=== PATIENT | female | born 1930 | race Caucasian/White ===

== ENCOUNTER 2016-12-07 23:06 | Inpatient (IN) | payer MEDICARE, OTHER ==
[~2016-12-07] VITALS: Ht 157.5 cm; Wt 53.0 kg
[2016-12-07 23:15] VITALS: BP 130/59; PULSE 73; RESP 17; TEMP 97.8; O2SAT 97
[2016-12-07] MEDS ORDERED: LEVO50TA4 PO (23:31)
[2016-12-07] MEDS ORDERED: SULF1TAB23 PO (23:31)
--- NOTE | 2016-12-07 23:48 | PD ---
HPI Chief Complaint: Hip Injury Time Seen by Provider: 23:48 Travel History International Travel<30 days: No Contact w/Intl Traveler<30days: No Traveled to known affect area: No History of Present Illness HPI The patient is an 86 year old female who presents to the [facility] emergency department with a history of right hip pain that began after losing her balance when getting out of a chair. She fell and landed on her right hip. She denies hitting her head or LOC. She feels nauseated, but she denies vomiting. She last ate a meal last at 6 pm. The patient denies ever having any surgery on the right hip. She was unable to ambulate after the fall. She denies any recent fevers, cough, congestion, neck pain, chest pain, shortness of breath, abdominal pain, vomiting, diarrhea, urinary symptoms, or neurologic symptoms. [facility] Past Medical History Narrative Medical The patient's past medical history is significant for hypothyroid disorder, MRSA infection in the back. Thyroid Disease: Yes Tetanus Vaccination: Unknown Influenza Vaccination: No ?: Not Past Surgical History Narrative Surgical The patient's past surgical history is significant for Neck fusion, back fusion , history of replacement of hardware in her back related to a MRSA infection now on suppressive antibiotic daily, history of hysterectomy, cholecystectomy, appendectomy. Other Surgery: Yes (back/neck) Social History Alcohol Use: No Tobacco Use: No Substance Use: No Allergies-Medications (Allergen,Severity, Reaction): Coded Allergies: Penicillins (Verified Allergy, Severe, 12/07/16) Sulfa (Sulfonamide Antibiotics) (Verified Allergy, Severe, 12/07/16) alendronate sodium (Verified Allergy, Severe, 12/07/16) celecoxib (Verified Allergy, Severe, 12/07/16) ciprofloxacin (Verified Allergy, Severe, 12/07/16) clindamycin (Verified Allergy, Severe, 12/07/16) codeine (Verified Allergy, Severe, 12/07/16) diphenhydramine (Verified Allergy, Severe, 12/07/16) egg (Verified Allergy, Severe, 12/07/16) influenza virus vaccine, specific (Verified Allergy, Severe, 12/07/16) lansoprazole (Verified Allergy, Severe, 12/07/16) misoprostol (Verified Allergy, Severe, 12/07/16) morphine (Verified Allergy, Severe, 12/07/16) pneumococcal vaccine (Verified Allergy, Severe, 12/07/16) propoxyphene (Verified Allergy, Severe, 12/07/16) ranitidine (Verified Allergy, Severe, 12/07/16) tetracycline (Verified Allergy, Severe, 12/07/16) Reported Meds & Prescriptions Reported Meds & Active Scripts Active Reported Levothyroxine (Levothyroxine Sodium) 50 Mcg Tab 50 Mcg PO DAILY Sulfamethoxazole-Trimethoprim 800-160 Mg Tab 1 Tab PO BID Review of Systems Except as stated in HPI: all other systems reviewed are Neg General / Constitutional: No: Fever Eyes: No: Visual changes HENT: No: Headaches Cardiovascular: No: Chest Pain or Discomfort Respiratory: No: Shortness of Breath Gastrointestinal: No: Nausea, Vomiting, Diarrhea, Abdominal Pain Genitourinary: No: Dysuria Musculoskeletal: Positive: Arthralgias, Limited ROM, Pain Skin: No Rash Neurologic: No: Weakness, Focal Abnormalities, Coordination Problem, Headache, Change in Mentation, Slurred Speech, Sensory Disturbance Psychiatric: No: Depression Endocrine: No: Polydipsia Hematologic/Lymphatic: No: Easy Bruising Physical Exam Narrative General: The patient is a well-developed well-nourished female in no acute distress. Head and Neck exam: Head is normocephalic atraumatic. Eyes: EOMI, pupils are equal round and reactive to light. Nose: Midline septum with pink mucous membranes Mouth: Dentition unremarkable. Moist mucus membranes. Posterior oropharynx is not erythematous. No tonsillar hypertrophy. Uvula midline. Airway patent. Neck: No palpable lymphadenopathy. No nuchal rigidity. No thyromegaly. Cardiovascular: Regular rate and rhythm without murmurs, gallops, or rubs. Lungs: Clear to auscultation bilaterally. No wheezes, rhonchi, or rales. Abdomen: Soft, with reported tenderness in her hip when palpating on the right side of her abdomen both upper and lower quadrant. No guarding, rebound, or rigidity. Normal bowel sounds are audible. No tenderness on palpation of McBurney's point. Extremities: No clubbing, cyanosis, or edema. 2+ pulses in all 4 extremities. No calf tenderness on palpation. The patient has her knee propped up on a pillow. The patient has no evidence of shortening or internal or external rotation. The patient has exquisite pain with any attempts at range of motion of the right hip. Back: No spinous process tenderness to palpation. No costovertebral angle tenderness to palpation. Neurologic Exam: Grossly nonfocal. Skin Exam: No rash noted. Intact skin that is warm and dry. Data Data Last Documented VS Vital Signs Date Time Temp Pulse Resp B/P (MAP) Pulse Ox O2 Delivery O2 Flow Rate FiO2 12/08/16 00:30 73 17 130/66 (87) 93 Room Air 12/07/16 23:15 97.8 Orders Orders Electrocardiogram (12/07/16 23:50) Complete Blood Count With Diff (12/07/16 23:50) Comprehensive Metabolic Panel (12/07/16 23:50) Troponin I (12/07/16 23:50) Prothrombin Time / Inr (Pt) (12/07/16 23:50) Act Partial Throm Time (Ptt) (12/07/16 23:50) Urinalysis - C+S If Indicated (12/07/16 23:50) Magnesium (Mg) (12/07/16 23:50) Chest, Single Ap (12/07/16 23:50) Iv Access Insert/Monitor (12/07/16 23:50) Ecg Monitoring (12/07/16 23:50) Oximetry (12/07/16 23:50) Hip, Uni(Ap&Lat) W Ap Pelvis (12/07/16 23:50) Ice/Cold Pack (12/07/16 23:50) Hydromorphone Pf Inj (Dilaudid Pf Inj) (12/08/16 00:30) Ondansetron Inj (Zofran Inj) (12/08/16 00:30) Sodium Chlor 0.9% 1000 Ml Inj (Ns 1000 M (12/08/16 00:30) Urinary Catheter Insert/Apply (12/08/16 00:22) Admit Order (Ed Use Only) (12/08/16 01:41) Consult Orthopedic (12/08/16 ) Admit To Inpatient (12/08/16 ) Vital Signs (Adult) Q4H (12/08/16 01:41) Activity Bed Rest (12/08/16 01:41) [employer] Clerk / Telemetry .CONTINUOUS (12/08/16 01:41) Diet Npo (12/08/16 Breakfast) Sodium Chloride 0.9% Flush (Ns Flush) (12/08/16 01:45) Sodium Chloride 0.9% Flush (Ns Flush) (12/08/16 09:00) Ondansetron Inj (Zofran Inj) (12/08/16 01:45) Basic Metabolic Panel (Bmp) (12/09/16 06:00) Complete Blood Count With Diff (12/09/16 06:00) Case Management Consult (12/08/16 01:41) Naloxone Inj (Narcan Inj) (12/08/16 01:45) Inpatient Certification (12/08/16 ) Hydromorphone Pf Inj (Dilaudid Pf Inj) (12/08/16 01:45) Labs Laboratory Tests Test 12/08/16 00:00 12/08/16 00:05 White Blood Count 5.4 TH/MM3 Red Blood Count 5.29 MIL/MM3 Hemoglobin 13.9 GM/DL Hematocrit 43.6 % Mean Corpuscular Volume 82.5 FL Mean Corpuscular Hemoglobin 26.4 PG Mean Corpuscular Hemoglobin Concent 31.9 % Red Cell Distribution Width 18.4 % Platelet Count 207 TH/MM3 Mean Platelet Volume 8.3 FL Neutrophils (%) (Auto) 61.5 % Lymphocytes (%) (Auto) 23.2 % Monocytes (%) (Auto) 10.5 % Eosinophils (%) (Auto) 2.8 % Basophils (%) (Auto) 2.0 % Neutrophils # (Auto) 3.3 TH/MM3 Lymphocytes # (Auto) 1.3 TH/MM3 Monocytes # (Auto) 0.6 TH/MM3 Eosinophils # (Auto) 0.1 TH/MM3 Basophils # (Auto) 0.1 TH/MM3 CBC Comment DIFF FINAL Differential Comment Prothrombin Time 10.7 SEC Prothromb Time International Ratio 1.0 RATIO Activated Partial Thromboplast Time 25.4 SEC Blood Urea Nitrogen 22 MG/DL Creatinine 1.26 MG/DL Random Glucose 87 MG/DL Total Protein 7.0 GM/DL Albumin 3.7 GM/DL Calcium Level 9.6 MG/DL Magnesium Level 2.3 MG/DL Alkaline Phosphatase 95 U/L Aspartate Amino Transf (AST/SGOT) 33 U/L Alanine Aminotransferase (ALT/SGPT) 21 U/L Total Bilirubin 0.4 MG/DL Sodium Level 138 MEQ/L Potassium Level 4.5 MEQ/L Chloride Level 105 MEQ/L Carbon Dioxide Level 28.8 MEQ/L Anion Gap 4 MEQ/L Estimat Glomerular Filtration Rate 40 ML/MIN Troponin I LESS THAN 0.02 NG/ML Urine Color LIGHT-YELLOW Urine Turbidity CLEAR Urine pH 6.5 Urine Specific [employer] 1.009 Urine Protein NEG mg/dL Urine Glucose (UA) NEG mg/dL Urine Ketones NEG mg/dL Urine Occult Blood NEG Urine Nitrite NEG Urine Bilirubin NEG Urine Urobilinogen LESS THAN 2.0 MG/DL Urine Leukocyte Esterase SMALL Urine RBC 2 /hpf Urine WBC 4 /hpf Urine Squamous Epithelial Cells <1 /hpf Microscopic Urinalysis Comment CULT NOT INDICATED MDM Medical Decision Making Medical Screen Exam Complete: Yes Emergency Medical Condition: Yes Medical Record Reviewed: Yes Interpretation(s) Last Impressions Hip and Pelvis X-Ray 12/07/162349 Signed Impressions: Service Date/Time: November 00:06 - CONCLUSION: 1. Acute displaced subcapital fracture of the right femoral neck. 2. Remote fractures of the right hemipelvis. Previous spine fixation. Luis Enrique Matos MD Chest X-Ray 12/07/162349 Signed Impressions: Service Date/Time: November 00:16 - CONCLUSION: 1. No active disease. Fixation of the thoracic spine. Luis Enrique Matos MD Differential Diagnosis Right hip fracture, versus dislocation, versus femur fracture, versus pelvis fracture Narrative Course During the course of the patients emergency department visit, the patients history, examination, and differential diagnosis were reviewed with the patient. The patient had [-] IV access obtained and blood work sent for analysis. The patient was on a pvc monitor with oximetry and blood pressure monitoring. An ECG was done on arrival. The patient's ECG reveals a sinus rhythm heart rate of 75, no acute ST segment elevation is noted. QRS duration is 86 ms, QTC 415 ms. And x-ray was done of the right hip and pelvis. The patient was initially provided hydromorphone 0.2 mg IV for pain, Zofran 4 mg IV for nausea. The patient was started on normal saline IV fluids The patients laboratory studies were reviewed and remarkable for a white count of 5.4, hemoglobin 13.9, platelets 207 with 10.5 monos, CMP is remarkable for a BUN of 22, creatinine 1.26, troponin I is less than 0.02, PT PTT within normal limits. Urinalysis shows small leukocyte esterase otherwise unremarkable. Radiology studies were reviewed and remarkable for a chest x-ray that shows no acute cardio pulmonary disease. A right hip x-ray reveals an acute displaced subcapital femoral neck fracture on the right. Remote fractures of the right hemipelvis, previous spine fixation. A call was placed out to the orthopedic physician on-call who did agree to see the patient in consultation. The patients results were discussed with the patient, including the plan of care. I explained that further testing and/ or monitoring is indicated based on the patients history, examination, and/ or laboratory findings. Therefore, I recommended admission for additional evaluation. The patient expressed understanding and was agreeable with this plan. The patient was admitted to the hospital in stable condition and [facility] Physician Communication Physician Communication The patient's case was discussed with Dr. Markham who did agree to admit the patient for further evaluation and treatment at this time. The patient's case was discussed with the orthopedic physician on-call, Dr. Fernandes who did agree to see the patient in consultation. She requested that the patient be made nothing by mouth. Diagnosis Primary Impression: Closed right hip fracture Qualified Codes: S72.001A - Fracture of unspecified part of neck of right femur, initial encounter for closed fracture Admitting Information Admitting Physician Requests: Admit Criss Pena MD Dec 07, 2016 23:48
[2016-12-08] VITALS (10 sets, daily range): BP systolic 90–130; BP diastolic 36–80; PULSE 61–76; RESP 16–18; TEMP 95.9–98; O2SAT 93–97
[2016-12-08 00:16] LABS: AUTOMATED NEUTROPHIL # 3.3 TH/MM3 (1.8-7.7); BASOPHIL # 0.1 TH/MM3 (0-0.2); EOSINOPHIL # 0.1 TH/MM3 (0-0.4); EOSINOPHIL % 2.8 % (0.0-4.0); HEMATOCRIT 43.6 % (35.0-46.0); HEMO FLAGS DIFF FINAL; LYMPH % 23.2 % (9.0-44.0); LYMPHOCYTE # 1.3 TH/MM3 (1.0-4.8); MEAN CELL VOLUME 82.5 FL (80.0-100.0); MEAN CORPUSCULAR HEMOGLOBIN 26.4 PG (27.0-34.0); MEAN CORPUSCULAR HGB CONC 31.9 % (32.0-36.0); MONO % 10.5 % (0.0-8.0); NEUT % 61.5 % (16.0-70.0); PLATELET COUNT 207 TH/MM3 (150-450); RED BLOOD COUNT 5.29 MIL/MM3 (4.00-5.30); RED CELL DISTRIBUTION WIDTH 18.4 % (11.6-17.2); WHITE BLOOD COUNT 5.4 TH/MM3 (4.0-11.0)
[2016-12-08 00:20] LABS: BLOOD, URINE NEG (NEG); GLUCOSE,URINE NEG (NEG); KETONE, URINE NEG (NEG); NITRITE,URINE NEG (NEG); PH, URINE 6.5 (5.0-8.5); SQUAMOUS EPITHELIAL CELL URINE <1 /hpf (0-5); URINE COLOR LIGHT-YELLOW (YELLW/STRAW)
[2016-12-08 00:23] LABS: APTT (PATIENT) 25.4 SEC (24.3-30.1); PROTHROMBIN TIME - PATIENT 10.7 SEC (9.8-11.6)
[2016-12-08 00:24] LABS: COMMENT (UR) CULT NOT INDICATED; CULTURE IF INDICATED CULT NOT INDICATED
[2016-12-08] MEDS ORDERED: HYDROmorphone HCL PF 1 MG/ML VIAL IV PUSH ONE (00:30)
[2016-12-08] MEDS ORDERED: ONDANSETRON HCL 4 MG/2 ML VIAL IV PUSH ONE ×2 (00:30→12:00)
[2016-12-08 00:34] LABS: ALKALINE PHOSPHATASE 95 U/L (45-117); ALT (GPT) 21 U/L (10-53); TOTAL BILIRUBIN ADULT 0.4 MG/DL (0.2-1.0)
[2016-12-08 00:38] LABS: ANION GAP 4 MEQ/L (5-15); AST (GOT) 33 U/L (15-37); BICARBONATE 28.8 MEQ/L (21.0-32.0); BLOOD UREA NITROGEN 22 MG/DL (7-18); CHLORIDE 105 MEQ/L (98-107); GLOMERULAR FILTRATION RATE 40 ML/MIN (>89); MAGNESIUM 2.3 MG/DL (1.5-2.5); SODIUM (NA) 138 MEQ/L (136-145)
[2016-12-08 00:39] LABS: POTASSIUM 4.5 MEQ/L (3.5-5.1)
[2016-12-08] MEDS: SODIUM CHLOR 0.9% 1000 ML INJ 1,000 ML IV SCH ×3 (00:39→23:13)
--- NOTE | 2016-12-08 00:42 | RADRPT ---
EXAM DATE/TIME: 12/08/2016 00:16 [facility] COMPARISON: No previous studies available for comparison. INDICATIONS : Chest pain after fall. MEDICAL HISTORY : None. SURGICAL HISTORY : Back surgery. ENCOUNTER: Initial ACUITY: 1 day PAIN SCORE: 5/10 LOCATION: Bilateral chest FINDINGS: A single view of the chest demonstrates the lungs to be symmetrically aerated without evidence of mas s, infiltrate or effusion. There is previous amarilis fixation of the thoracic spine with a mild scoliosis . CONCLUSION: 1. No active disease. Fixation of the thoracic spine. Luis Enrique Matos MD on December 08, 2016 at 0:39 Board Certified Radiologist. This report was verified electronically.
--- NOTE | 2016-12-08 00:47 | RADRPT ---
EXAM DATE/TIME: 12/08/2016 00:06 [facility] COMPARISON: No previous studies available for comparison. INDICATIONS : Right hip pain after fall. MEDICAL HISTORY : None. SURGICAL HISTORY : Back surgery. ENCOUNTER: Initial ACUITY: 1 day PAIN SCORE: 10/10 LOCATION: Right hip. FINDINGS: Examination of the right hip was performed with AP Pelvis. Based fixation of the lower lumbar spine e xtending across the lumbosacral junction. Bony deformities in the right hemipelvis characteristic of remote fractures. There is also an acute fracture of the right femoral neck subcapital region. CONCLUSION: 1. Acute displaced subcapital fracture of the right femoral neck. 2. Remote fractures of the right hemipelvis. Previous spine fixation. Luis Enrique Matos MD on December 08, 2016 at 0:42 Board Certified Radiologist. This report was verified electronically.
[2016-12-08] MEDS ORDERED: NALOXONE HCL 0.4 MG/ML AMP IV PUSH PRN (01:45)
[2016-12-08] MEDS ORDERED: SODIUM CHLORIDE 0.9% FLUSH 10 ML FLUSH IV FLUSH PRN ×2 (01:45→15:15)
[2016-12-08] MEDS: HYDROmorphone HCL PF 1 MG/ML VIAL IV PUSH PRN ×2 (04:29→09:56)
[2016-12-08] MEDS: ONDANSETRON HCL 4 MG/2 ML VIAL IVP PRN ×2 (04:34→09:56)
--- NOTE | 2016-12-08 05:29 | HHI.HP ---
[facility] Admission Diagnosis Right hip fracture Diagnoses: Travel History International Travel<30 Days: No Contact w/Intl Traveler <30 Da: No Traveled to Known Affected Are: No History of Present Illness History from patient, ER physician communication, and review of medical records. Patient reported that she was at her hotel eating dinner and got up from her chair. She stated she suddenly got up and probably got up on the wrong direction and therefore somehow fell down. She does not remember getting tripped by anything. There was no object to cause this. She denies any premonitory symptoms prior to the fall such as chest pain/ palpitations/shortness of breath/focal weakness. Upon further questioning, patient also denies any recent fever/nausea/vomiting/ diarrhea/urinary burning or pain on urination. Denies any hematemesis/hematochezia/melena/hematuria. Patient travels here from [place] where she lives for vacationing with her nephew. 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 Verified with patient. Allergies: Coded Allergies: Penicillins (Verified Allergy, Severe, 12/07/16) Sulfa (Sulfonamide Antibiotics) (Verified Allergy, Severe, 12/07/16) alendronate sodium (Verified Allergy, Severe, 12/07/16) celecoxib (Verified Allergy, Severe, 12/07/16) ciprofloxacin (Verified Allergy, Severe, 12/07/16) clindamycin (Verified Allergy, Severe, 12/07/16) codeine (Verified Allergy, Severe, 12/07/16) diphenhydramine (Verified Allergy, Severe, 12/07/16) egg (Verified Allergy, Severe, 12/07/16) influenza virus vaccine, specific (Verified Allergy, Severe, 12/07/16) lansoprazole (Verified Allergy, Severe, 12/07/16) misoprostol (Verified Allergy, Severe, 12/07/16) morphine (Verified Allergy, Severe, 12/07/16) pneumococcal vaccine (Verified Allergy, Severe, 12/07/16) propoxyphene (Verified Allergy, Severe, 12/07/16) ranitidine (Verified Allergy, Severe, 12/07/16) tetracycline (Verified Allergy, Severe, 12/07/16) Family History none that she knows of Social History never smoked, never drank etoh or drug abuse visiting here from [place] , lives by herself, still driving , was in as RN for 27yrs Physical Exam Vital Signs Vital Signs Date Time Temp Pulse Resp B/P (MAP) Pulse Ox O2 Delivery O2 Flow Rate FiO2 12/08/16 04:59 12 12/08/16 03:53 98.0 68 18 110/59 (76) 95 12/08/16 02:32 75 16 94/50 (65) 100 12/08/16 00:30 73 17 130/66 (87) 93 Room Air 12/08/16 00:11 97 12/07/16 23:28 73 17 Room Air 12/07/16 23:15 97.8 73 17 130/59 (82) 97 Physical Exam GENERAL: This is a well-nourished, well-developed patient, in no apparent distress. Very pleasant lady, not in acute distress. SKIN: No rashes, ecchymoses or lesions. Cool and dry. HEAD: Atraumatic. Normocephalic. No temporal or scalp tenderness. EYES: No scleral icterus. No injection or drainage. ENT: Nose without bleeding, purulent drainage or septal hematoma. Airway patent. NECK: Trachea midline. No JVD CARDIOVASCULAR: Regular rate and rhythm without murmurs, gallops, or rubs. RESPIRATORY: Clear to auscultation. Breath sounds equal bilaterally. No wheezes , rales, or rhonchi. GASTROINTESTINAL: Abdomen soft, non-tender, nondistended. No guarding. MUSCULOSKELETAL: Extremities without clubbing, cyanosis, or edema. No calf tenderness. NEUROLOGICAL: Awake and alert. Normal speech. Right lower extremity slightly shorter than the left with internal rotation. Laboratory Laboratory Tests Test 12/08/16 00:00 12/08/16 00:05 White Blood Count 5.4 Red Blood Count 5.29 Hemoglobin 13.9 Hematocrit 43.6 Mean Corpuscular Volume 82.5 Mean Corpuscular Hemoglobin 26.4 Mean Corpuscular Hemoglobin Concent 31.9 Red Cell Distribution Width 18.4 Platelet Count 207 Mean Platelet Volume 8.3 Neutrophils (%) (Auto) 61.5 Lymphocytes (%) (Auto) 23.2 Monocytes (%) (Auto) 10.5 Eosinophils (%) (Auto) 2.8 Basophils (%) (Auto) 2.0 Neutrophils # (Auto) 3.3 Lymphocytes # (Auto) 1.3 Monocytes # (Auto) 0.6 Eosinophils # (Auto) 0.1 Basophils # (Auto) 0.1 CBC Comment DIFF FINAL Differential Comment Prothrombin Time 10.7 Prothromb Time International Ratio 1.0 Activated Partial Thromboplast Time 25.4 Blood Urea Nitrogen 22 Creatinine 1.26 Random Glucose 87 Total Protein 7.0 Albumin 3.7 Calcium Level 9.6 Magnesium Level 2.3 Alkaline Phosphatase 95 Aspartate Amino Transf (AST/SGOT) 33 Alanine Aminotransferase (ALT/SGPT) 21 Total Bilirubin 0.4 Sodium Level 138 Potassium Level 4.5 Chloride Level 105 Carbon Dioxide Level 28.8 Anion Gap 4 Estimat Glomerular Filtration Rate 40 Troponin I LESS THAN 0.02 Urine Color LIGHT-YELLOW Urine Turbidity CLEAR Urine pH 6.5 Urine Specific [place] 1.009 Urine Protein NEG Urine Glucose (UA) NEG Urine Ketones NEG Urine Occult Blood NEG Urine Nitrite NEG Urine Bilirubin NEG Urine Urobilinogen LESS THAN 2.0 Urine Leukocyte Esterase SMALL Urine RBC 2 Urine WBC 4 Urine Squamous Epithelial Cells <1 Microscopic Urinalysis Comment CULT NOT INDICATED Result Diagram: 12/08/16 0000 12/08/16 0000 Imaging Last 48 hours Impressions Hip and Pelvis X-Ray 12/07/162349 Signed Impressions: Service Date/Time: November 00:06 - CONCLUSION: 1. Acute displaced subcapital fracture of the right femoral neck. 2. Remote fractures of the right hemipelvis. Previous spine fixation. Luis Enrique Matos MD Chest X-Ray 12/07/162349 Signed Impressions: Service Date/Time: November 00:16 - CONCLUSION: 1. No active disease. Fixation of the thoracic spine. Luis Enrique Matos MD Caprinamor VTE Risk Assessment Caprini VTE Risk Assessment: Mod/High Risk (score >= 2) Caprini Risk Assessment Model Point Value = 1 Point Value = 2 Point Value = 3 Point Value = 5 Age 41-60 Minor surgery BMI > 25 kg/m2 Swollen legs Varicose veins or History of unexplained or recurrent spontaneous Oral contraceptives or hormone replacement Sepsis (< 1 month) Serious lung disease, including pneumonia (< 1 month) Abnormal pulmonary function Acute myocardial infarction Congestive heart failure (< 1 month) History of inflammatory bowel disease Medical patient at bed rest Age 61-74 Arthroscopic surgery Major open surgery (> 45 min) Laparoscopic surgery (> 45 min) Malignancy Confined to bed (> 72 hours) Immobilizing plaster cast Central venous access Age >= 75 History of VTE Family history of VTE Factor V Leiden Prothrombin [id number] Lupus anticoagulant Anticardiolipin antibodies Elevated serum homocysteine Heparin-induced thrombocytopenia Other congenital or acquired thrombophilia Stroke (< 1 month) Elective arthroplasty Hip, pelvis, or leg fracture Acute spinal cord injury (< 1 month) Prophylaxis Regimen Total Risk Factor Score Risk Level Prophylaxis Regimen 0-1 Low Early ambulation 2 Moderate Order ONE of the following: *Sequential Compression Device (SCD) *Heparin 5000 units SQ BID 3-4 Higher Order ONE of the following medications: *Heparin 5000 units SQ TID *Enoxaparin/Lovenox 40 mg SQ daily (WT < 150 kg, CrCl > 30 mL/min) *Enoxaparin/Lovenox 30 mg SQ daily (WT < 150 kg, CrCl > 10-29 mL/min) *Enoxaparin/Lovenox 30 mg SQ BID (WT < 150 kg, CrCl > 30 mL/min) AND/OR *Sequential Compression Device (SCD) 5 or more Highest Order ONE of the following medications: *Heparin 5000 units SQ TID (Preferred with Epidurals) *Enoxaparin/Lovenox 40 mg SQ daily (WT < 150 kg, CrCl > 30 mL/min) *Enoxaparin/Lovenox 30 mg SQ daily (WT < 150 kg, CrCl > 10-29 mL/min) *Enoxaparin/Lovenox 30 mg SQ BID (WT < 150 kg, CrCl > 30 mL/min) AND *Sequential Compression Device (SCD) Assessment and Plan Assessment and Plan Impression: Status post fall Right femoral neck fracture hypothyroidism hx of MRSA 7 yrs ago from infected back fusion sx hardware- has been taking bactrim since then per [facility] for prophylaxis Plan: Nothing by mouth. IV hydration. Orthopedics was consulted and GI physician discussed with orthopedics over the phone. Pain control if needed. Patient however refused most medications including pain medications and she is allergic to those. She states she takes only Motrin if needed. Resume her home medications levothyroxine, Bactrim. DVT prophylaxis with SCD. Chemical prophylaxis to start postoperatively. Patient is medically cleared with moderate risk for her hip fracture repair. Discussed Condition With Patient, ER physician, patient's nurse Physician Certification 2 Midnight Certification Type: Admission for Inpatient Services Order for Inpatient Services The services are ordered in accordance with Medicare regulations or non- Medicare payer requirements, as applicable. In the case of services not specified as inpatient-only, they are appropriately provided as inpatient services in accordance with the 2-midnight benchmark. Estimated LOS (days): 3 days is the estimated time the patient will need to remain in the hospital, assuming treatment plan goals are met and no additional complications. Post-Hospital Plan: Not yet determined Tej Markham MD Dec 08, 2016 05:29
--- NOTE | 2016-12-08 06:33 | PD.CONS ---
HPI Service Orthopedic Surgeons Consult Requested By Reason for Consult Right femoral neck fracture Primary Care Physician Non-Staff Admission Diagnosis Right hip fracture Diagnoses: Chief Complaint: Right hip pain after fall History of Present Illness 86yo F who presents with R hip pain after a mechanical fall. Patient denies any head injury. She reports significant right hip pain with movement. 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 fusion sx hardware- has been taking bactrim since then per [place] infectious dx specialist for prophylaxis Past Surgical History fusion from neck to coccyx bilateral wrist sx cholecystectomy 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- ercps, egds hysterectomy benign tumor of uterus fibrocystic dx - lumpectomy Allergies: Coded Allergies: Penicillins (Verified Allergy, Severe, 12/07/16) Sulfa (Sulfonamide Antibiotics) (Verified Allergy, Severe, 12/07/16) alendronate sodium (Verified Allergy, Severe, 12/07/16) celecoxib (Verified Allergy, Severe, 12/07/16) ciprofloxacin (Verified Allergy, Severe, 12/07/16) clindamycin (Verified Allergy, Severe, 12/07/16) codeine (Verified Allergy, Severe, 12/07/16) diphenhydramine (Verified Allergy, Severe, 12/07/16) egg (Verified Allergy, Severe, 12/07/16) influenza virus vaccine, specific (Verified Allergy, Severe, 12/07/16) lansoprazole (Verified Allergy, Severe, 12/07/16) misoprostol (Verified Allergy, Severe, 12/07/16) morphine (Verified Allergy, Severe, 12/07/16) pneumococcal vaccine (Verified Allergy, Severe, 12/07/16) propoxyphene (Verified Allergy, Severe, 12/07/16) ranitidine (Verified Allergy, Severe, 12/07/16) tetracycline (Verified Allergy, Severe, 12/07/16) Active Ordered Medications Current Medications Medications (Trade) Dose Ordered Sig/Alejandrina Route Start Time Stop Time Status Last Admin Sodium Chloride 1,000 ml @ 84 mls/hr [id number] IV 12/08/16 00:30 12/08/16 00:39 (NS Flush) 2 ml UNSCH PRN IV FLUSH 12/08/16 01:45 (NS Flush) 2 ml BID IV FLUSH 12/08/16 09:00 (Zofran Inj) 4 mg Q6H PRN IVP 12/08/16 01:45 12/08/16 04:34 (Narcan Inj) 0.4 mg UNSCH PRN IV PUSH 12/08/16 01:45 (Dilaudid Pf Inj) 0.2 mg Q4H PRN IV PUSH 12/08/16 01:45 12/08/16 04:29 Reported Meds & Active Scripts Active Reported Levothyroxine (Levothyroxine Sodium) 50 Mcg Tab 50 Mcg PO DAILY Sulfamethoxazole-Trimethoprim 800-160 Mg Tab 1 Tab PO BID Family History none that she knows of Social History never smoked, never drank etoh or drug abuse visiting here from [place] , lives by herself, still driving , was in as RN for 27yrs Physical Exam Vital Signs Vital Signs Date Time Temp Pulse Resp B/P (MAP) Pulse Ox O2 Delivery O2 Flow Rate FiO2 12/08/16 04:59 12 12/08/16 03:53 98.0 68 18 110/59 (76) 95 12/08/16 02:32 75 16 94/50 (65) 100 12/08/16 00:30 73 17 130/66 (87) 93 Room Air 12/08/16 00:11 97 12/07/16 23:28 73 17 Room Air 12/07/16 23:15 97.8 73 17 130/59 (82) 97 Laboratory Laboratory Tests Test 12/08/16 00:00 12/08/16 00:05 White Blood Count 5.4 Red Blood Count 5.29 Hemoglobin 13.9 Hematocrit 43.6 Mean Corpuscular Volume 82.5 Mean Corpuscular Hemoglobin 26.4 Mean Corpuscular Hemoglobin Concent 31.9 Red Cell Distribution Width 18.4 Platelet Count 207 Mean Platelet Volume 8.3 Neutrophils (%) (Auto) 61.5 Lymphocytes (%) (Auto) 23.2 Monocytes (%) (Auto) 10.5 Eosinophils (%) (Auto) 2.8 Basophils (%) (Auto) 2.0 Neutrophils # (Auto) 3.3 Lymphocytes # (Auto) 1.3 Monocytes # (Auto) 0.6 Eosinophils # (Auto) 0.1 Basophils # (Auto) 0.1 CBC Comment DIFF FINAL Differential Comment Prothrombin Time 10.7 Prothromb Time International Ratio 1.0 Activated Partial Thromboplast Time 25.4 Blood Urea Nitrogen 22 Creatinine 1.26 Random Glucose 87 Total Protein 7.0 Albumin 3.7 Calcium Level 9.6 Magnesium Level 2.3 Alkaline Phosphatase 95 Aspartate Amino Transf (AST/SGOT) 33 Alanine Aminotransferase (ALT/SGPT) 21 Total Bilirubin 0.4 Sodium Level 138 Potassium Level 4.5 Chloride Level 105 Carbon Dioxide Level 28.8 Anion Gap 4 Estimat Glomerular Filtration Rate 40 Troponin I LESS THAN 0.02 Urine Color LIGHT-YELLOW Urine Turbidity CLEAR Urine pH 6.5 Urine Specific [place] 1.009 Urine Protein NEG Urine Glucose (UA) NEG Urine Ketones NEG Urine Occult Blood NEG Urine Nitrite NEG Urine Bilirubin NEG Urine Urobilinogen LESS THAN 2.0 Urine Leukocyte Esterase SMALL Urine RBC 2 Urine WBC 4 Urine Squamous Epithelial Cells <1 Microscopic Urinalysis Comment CULT NOT INDICATED Result Diagram: 12/08/16 0000 12/08/16 0000 Imaging R hip & pelvis XR with evidence of displaced subcapital femoral neck fracture Assessment & Plan Problem List: (1) Closed right hip fracture ICD Codes: S72.001A - Fracture of unspecified part of neck of right femur, initial encounter for closed fracture Status: Acute Qualifiers: Qualified Codes: S72.001A - Fracture of unspecified part of neck of right femur, initial encounter for closed fracture Assessment and Plan Right displaced subcapital femoral neck fracture -NPO for surgery -Discussed with patient the plan will be for surgery today, provided she is clear from medicine standpoint. Likely she will require a hemiarthroplasty. I do have some concern with a MRSA infection from spine surgery and chronic suppressive antibiotics that she does have a higher risk of subsequent infection. Jewell Fernandes MD Dec 08, 2016 06:33
[2016-12-08] MEDS ORDERED: SODIUM CHLORIDE 0.9% FLUSH 10 ML FLUSH IV FLUSH SCH (09:00)
[2016-12-08] MEDS ORDERED: GENTAMICIN SULFATE 80 MG/2 ML VIAL ONE (11:41)
[2016-12-08] MEDS ORDERED: HYDROmorphone HCL PF 2 MG/ML VIAL ONE (11:49)
[2016-12-08] MEDS ORDERED: ACETAMINOPHEN 1000 MG/100 ML 100 ML IV ONE (11:49)
[2016-12-08] MEDS ORDERED: ePHEDrine/NS 25 MG/5 ML SYR IV ONE (12:00)
[2016-12-08] MEDS ORDERED: ROCURONIUM INJ 50 MG/5 ML SYRINGE IV PUSH ONE (12:00)
[2016-12-08] MEDS ORDERED: LACTATED RINGER'S 1000 ML INJ 1,000 ML IV ONE (12:00)
[2016-12-08] MEDS ORDERED: LIDOCAINE HCL 1% PF 5 ML AMPULE OTHER ONE (12:00)
[2016-12-08] MEDS ORDERED: GLYCOPYRROLATE 1 MG/5 ML SYRINGE IV PUSH ONE (12:00)
[2016-12-08] MEDS ORDERED: PROPOFOL 200 MG/20 ML AMP IV ONE (12:00)
[2016-12-08] MEDS ORDERED: NEOSTIGMINE 3 MG/3 ML SYR IV ONE (12:00)
[2016-12-08] MEDS ORDERED: APREPITANT 40 MG CAP ONE (12:19)
[2016-12-08] MEDS ORDERED: MIDAZOLAM HCL 2 MG/2 ML VIAL ONE (12:19)
[2016-12-08] MEDS ORDERED: DEXAMETHASONE SOD PHOS 4 MG/ML VIAL ONE (12:19)
[2016-12-08] MEDS ORDERED: ceFAZolin INJ 1,000 MG VIAL ONE (12:36)
[2016-12-08] MEDS: VANCOMYCIN HCL 1000 MG VIAL ONE (13:03)
[2016-12-08] MEDS ORDERED: TOBRAMYCIN SULFATE 1200 MG VIAL OTHER ONE (13:45)
--- NOTE | 2016-12-08 15:03 | HHI.PR ---
cc: Jewell Fernandes MD Immediate Post Op Note Procedure Date: Dec 08, 2016 Pre Op Diagnosis: Closed right subcapital displaced femoral neck fracture Post Op Diagnosis: same Surgeon: Jewell Fernandes Cooling Tower Operator(s): none Procedure: Right hip hemiarthroplasty Findings: Subcapital femoral neck fracture Additional Information: Depuy Ophiem size 5 taper cemented stem Depuy 28mm +5 femoral head Complications: none Specimen(s) removed: none Estimated blood loss: 100cc Jewell Fernandes MD Dec 08, 2016 15:03
[2016-12-08] MEDS ORDERED: DO NOT ADM ANY ANTICOAGULANT DRUGS PRN (15:08)
[2016-12-08] MEDS ORDERED: MAGNESIUM HYDROXIDE SUSP 30 ML CUP PO PRN (15:15)
[2016-12-08] MEDS ORDERED: Post-op Orders (for Pharmacy) MISC XX ONE (15:15)
[2016-12-08] MEDS ORDERED: BISACODYL 10 MG SUPP RECTAL PRN (15:15)
[2016-12-08] MEDS ORDERED: SENNOSIDES 8.6 MG TAB PO PRN (15:15)
[2016-12-08] MEDS ORDERED: LACTULOSE SYRUP 20 GM/30 ML CUP PO PRN (15:15)
[2016-12-08] MEDS ORDERED: ACETAMINOPHEN 325 MG TAB PO PRN (15:15)
--- NOTE | 2016-12-08 15:51 | RADRPT ---
EXAM DATE/TIME: 12/08/2016 15:08 [facility] COMPARISON: HIP RIGHT (AP&LAT 2/3VWS) W AP PELVIS, December 08, 2016, 0:06. INDICATIONS : Post op right hip surgery MEDICAL HISTORY : None. SURGICAL HISTORY : back surgery. ENCOUNTER: Initial ACUITY: 1 day PAIN SCORE: Non-responsive. LOCATION: Right hip and pelvis FINDINGS: 3 views of the right hip and pelvis. Right sided hemiarthroplasty noted. Alignment within normal limi ts. Cutaneous david in place. No evidence of new fracture. CONCLUSION: Right sided hemiarthroplasty postop appearance within normal limits. Mg Gonzalez MD on December 08, 2016 at 15:40 Board Certified Radiologist. This report was verified electronically.
--- NOTE | 2016-12-08 16:30 | HHI.PR ---
Subjective Remarks Patient sleepy just got out of surgery. Objective Vitals Vital Signs Date Time Temp Pulse Resp B/P (MAP) Pulse Ox O2 Delivery O2 Flow Rate FiO2 12/08/16 16:00 72 16 111/53 (72) 99 Nasal Cannula 2 12/08/16 15:55 74 16 97 Nasal Cannula 2 12/08/16 15:45 74 16 125/49 (74) 93 Room Air 12/08/16 15:30 69 16 104/51 (68) 99 Nasal Cannula 2 12/08/16 15:15 70 16 92/51 (65) 99 Nasal Cannula 2 12/08/16 15:02 97.5 72 16 108/54 (72) 99 Nasal Cannula 2 12/08/16 10:54 98.0 61 16 110/57 (74) 94 12/08/16 10:26 22 12/08/16 07:30 98.0 70 16 109/54 (72) 95 12/08/16 03:53 98.0 68 18 110/59 (76) 95 12/08/16 03:27 67 12/08/16 02:32 75 16 94/50 (65) 100 12/08/16 00:30 73 17 130/66 (87) 93 Room Air 12/08/16 00:11 97 12/07/16 23:28 73 17 Room Air 12/07/16 23:15 97.8 73 17 130/59 (82) 97 I/O 12/07/16 12/07/16 12/07/16 12/08/16 12/08/16 12/08/16 07:00 15:00 23:00 07:00 15:00 23:00 Intake Total 1300 ml 50 ml Output Total 400 ml 900 ml 100 ml Balance -400 ml 400 ml -50 ml Intake Oral 0 ml IV Total 50 ml Other 1300 ml Output Urine Total 400 ml 800 ml 100 ml Estimated Blood Loss 100 ml # Voids 1 Result Diagram: 12/08/16 0000 12/08/16 0000 Objective Remarks GENERAL: This is a well-nourished, well-developed patient, in no apparent distress. CARDIOVASCULAR: Regular rate and rhythm RESPIRATORY: Clear to auscultation. Breath sounds equal bilaterally. No wheezes , rales, or rhonchi. GASTROINTESTINAL: Abdomen soft, non-tender, nondistended. Normal active bowel sounds MUSCULOSKELETAL: Extremities without clubbing, cyanosis, or edema. Right hip bandage clean dry and intact NEURO: Sleepy, opens eyes to voice and stimuli discuss surgery. A/P Assessment and Plan Status post fall with close Right subcapital femoral neck fracture - status post right hemiarthroplasty with orthopedic surgery; continue postoperative care , pain control, rehabilitation hypothyroidism Resume home Synthroid DVT prophylaxis Lovenox. Maddie Tolentino MD Dec 08, 2016 16:30
--- NOTE | 2016-12-08 17:15 | EKG ---
Date Performed: 12/08/2016 Time Performed: 00:32:54 PTAGE: 86 years EKG: Sinus rhythm LOW QRS VOLTAGE POSSIBLE RIGHT VENTRICULAR CONDUCTION DELAY ABNORMAL ECG NO PREVIOUS TRACING DOCTOR: Geraldine Landa Interpretating Date/Time 12/08/2016 17:14:22
[2016-12-08] MEDS: SODIUM CHLORIDE 0.9% FLUSH 10 ML FLUSH IV FLUSH SCH (19:50)
[2016-12-08] MEDS: DOCUSATE SODIUM 50 MG/SENNA 8.6 MG TAB PO SCH (19:50)
[2016-12-09] VITALS (12 sets, daily range): BP systolic 80–108; BP diastolic 48–58; PULSE 61–79; RESP 16–17; TEMP 96.6–98.7; O2SAT 92–97
[2016-12-09] MEDS: ENOXAPARIN SODIUM 40 MG/0.4 ML SYRINGE SQ SCH (03:23)
[2016-12-09] MEDS: SODIUM CHLOR 0.9% 1000 ML INJ 1,000 ML IV SCH (06:27)
--- NOTE | 2016-12-09 06:40 | PD.ORT.PN ---
Subjective Post Op Day #: 1 Subjective Remarks Patient states she really doesn't have any pain this morning. Denies any numbness or tingling. Denies CP, SOB, or nausea/vomiting. Objective Vitals Vital Signs Date Time Temp Pulse Resp B/P (MAP) Pulse Ox O2 Delivery O2 Flow Rate FiO2 12/09/16 04:40 97.0 67 16 94/48 (63) 95 12/09/16 00:45 97 Nasal Cannula 2.00 12/09/16 00:40 97.0 70 16 90/50 (63) 95 12/08/16 20:36 96.4 76 16 90/36 (54) 96 12/08/16 19:49 62 12/08/16 19:49 94 Nasal Cannula 2.00 12/08/16 17:00 95.9 68 17 100/80 (87) 94 12/08/16 16:00 72 16 111/53 (72) 99 Nasal Cannula 2 12/08/16 15:55 74 16 97 Nasal Cannula 2 12/08/16 15:45 74 16 125/49 (74) 93 Room Air 12/08/16 15:30 69 16 104/51 (68) 99 Nasal Cannula 2 12/08/16 15:15 70 16 92/51 (65) 99 Nasal Cannula 2 12/08/16 15:02 97.5 72 16 108/54 (72) 99 Nasal Cannula 2 12/08/16 10:54 98.0 61 16 110/57 (74) 94 12/08/16 10:26 22 12/08/16 07:30 98.0 70 16 109/54 (72) 95 I/O 12/08/16 12/08/16 12/08/16 12/09/16 12/09/16 12/09/16 07:00 15:00 23:00 07:00 15:00 23:00 Intake Total 1300 ml 290 ml Output Total 400 ml 900 ml 450 ml Balance -400 ml 400 ml -160 ml Intake Oral 240 ml IV Total 50 ml Other 1300 ml Output Urine Total 400 ml 800 ml 450 ml Estimated Blood Loss 100 ml # Voids 1 # Bowel Movements 0 Result Diagram: 12/08/16 0000 12/08/16 0000 Imaging R hip and pelvis XR with hemiarthroplasty in acceptable position. Objective Remarks Awake, alert, NAD RLE - dressing in place, no significant edema or erythema. +EHL/FHL, DF/PF. Sensation intact. Brisk cap refill. Abduction pillow in place Assessment & Plan Ortho Post Op Day #: 1 Problem List: (1) Closed right hip fracture ICD Codes: S72.001A - Fracture of unspecified part of neck of right femur, initial encounter for closed fracture Status: Acute Qualifiers: Qualified Codes: S72.001A - Fracture of unspecified part of neck of right femur, initial encounter for closed fracture Assessment and Plan Right femoral neck fracture, s/p R hip hemiarthroplasty -WBAT RLE. Abduction pillow. Anterolateral hip precautions -PT for mobilization -Lovenox for DVT ppx while inpatient, then xarelto upon discharge -Dressing change tomorrow, POD#2, then patient can leave dressing in place until follow-up -Follow-up in clinic 2 weeks. Jewell Fernandes MD Dec 09, 2016 06:40
[2016-12-09 06:50] LABS: AUTOMATED NEUTROPHIL # 7.5 TH/MM3 (1.8-7.7); BASOPHIL % 0.2 % (0.0-2.0); EOSINOPHIL % 0.5 % (0.0-4.0); HEMATOCRIT 38.3 % (35.0-46.0); HEMO FLAGS DIFF FINAL; LYMPH % 6.9 % (9.0-44.0); LYMPHOCYTE # 0.6 TH/MM3 (1.0-4.8); MEAN CELL VOLUME 84.1 FL (80.0-100.0); MEAN CORPUSCULAR HGB CONC 30.9 % (32.0-36.0); MONO % 8.1 % (0.0-8.0); NEUT % 84.3 % (16.0-70.0); PLATELET COUNT 174 TH/MM3 (150-450); RED BLOOD COUNT 4.55 MIL/MM3 (4.00-5.30); RED CELL DISTRIBUTION WIDTH 18.6 % (11.6-17.2); WHITE BLOOD COUNT 8.9 TH/MM3 (4.0-11.0)
[2016-12-09 06:56] LABS: BICARBONATE 24.9 MEQ/L (21.0-32.0); POTASSIUM 4.4 MEQ/L (3.5-5.1)
[2016-12-09] MEDS: DOCUSATE SODIUM 50 MG/SENNA 8.6 MG TAB PO SCH ×2 (08:19→21:44)
[2016-12-09] MEDS: SODIUM CHLORIDE 0.9% FLUSH 10 ML FLUSH IV FLUSH SCH ×2 (08:20→21:49)
[2016-12-09] MEDS: HYDROmorphone HCL PF 1 MG/ML VIAL IV PUSH PRN (10:32)
--- NOTE | 2016-12-09 13:33 | HHI.PR ---
Subjective Remarks Still complaining of pain and had difficulty doing physical therapy. Otherwise tolerating diet. No shortness of breath. Objective Vitals Vital Signs Date Time Temp Pulse Resp B/P (MAP) Pulse Ox O2 Delivery O2 Flow Rate FiO2 12/09/16 11:30 92/56 (68) 12/09/16 10:55 80/50 (60) 12/09/16 10:54 95 Nasal Cannula 2.00 12/09/16 08:00 96.6 65 17 101/49 (66) 92 12/09/16 04:40 97.0 67 16 94/48 (63) 95 12/09/16 00:45 97 Nasal Cannula 2.00 12/09/16 00:40 97.0 70 16 90/50 (63) 95 12/08/16 20:36 96.4 76 16 90/36 (54) 96 12/08/16 19:49 62 12/08/16 19:49 94 Nasal Cannula 2.00 12/08/16 17:00 95.9 68 17 100/80 (87) 94 12/08/16 16:00 72 16 111/53 (72) 99 Nasal Cannula 2 12/08/16 15:55 74 16 97 Nasal Cannula 2 12/08/16 15:45 74 16 125/49 (74) 93 Room Air 12/08/16 15:30 69 16 104/51 (68) 99 Nasal Cannula 2 12/08/16 15:15 70 16 92/51 (65) 99 Nasal Cannula 2 12/08/16 15:02 97.5 72 16 108/54 (72) 99 Nasal Cannula 2 I/O 12/08/16 12/08/16 12/08/16 12/09/16 12/09/16 12/09/16 07:00 15:00 23:00 07:00 15:00 23:00 Intake Total 1300 ml 290 ml 320 ml Output Total 400 ml 900 ml 450 ml 350 ml Balance -400 ml 400 ml -160 ml -30 ml Intake Oral 240 ml 120 ml IV Total 50 ml 200 ml Other 1300 ml Output Urine Total 400 ml 800 ml 450 ml 350 ml Estimated Blood Loss 100 ml # Voids 1 # Bowel Movements 0 0 Result Diagram: 12/09/16 0542 12/09/16 0542 Objective Remarks GENERAL: This is a well-nourished, well-developed patient, in no apparent distress. CARDIOVASCULAR: Regular rate and rhythm RESPIRATORY: Clear to auscultation. Breath sounds equal bilaterally. No wheezes , rales, or rhonchi. GASTROINTESTINAL: Abdomen soft, non-tender, nondistended. Normal active bowel sounds MUSCULOSKELETAL: Extremities without clubbing, cyanosis, or edema. Right hip bandage clean dry and intact NEURO: Alert and oriented 4 with moving all upper and lower extremities. A/P Assessment and Plan Status post fall with close Right subcapital femoral neck fracture - status post op day #1 right hemiarthroplasty with orthopedic surgery; continue postoperative care, pain control, rehabilitation hypothyroidism Resume home Synthroid DVT prophylaxis Lovenox. Discharge Planning To rehabilitation in [place] upon discharge. Discussed with nephew at bedside. Maddie Tolentino MD Dec 09, 2016 13:33
[2016-12-09] MEDS: KETOROLAC TROMETHAMINE 30 MG/ML (IVP) VIAL IV PUSH SCH ×2 (14:29→21:44)
[2016-12-09] MEDS: HYDROmorphone HCL 2 MG TAB PO PRN (17:33)
[2016-12-10] VITALS (7 sets, daily range): BP systolic 90–109; BP diastolic 47–66; PULSE 72–82; RESP 16; TEMP 96.3–98.1; O2SAT 92–98
[2016-12-10] MEDS: SODIUM CHLOR 0.9% 1000 ML INJ 1,000 ML IV SCH ×2 (00:10→12:37)
[2016-12-10] MEDS: ENOXAPARIN SODIUM 40 MG/0.4 ML SYRINGE SQ SCH (04:02)
--- NOTE | 2016-12-10 05:56 | PD.ORT.PN ---
Subjective Subjective Remarks pt states she was dizzy yesterday with therapy, feeling better this morning post op R hip soreness Objective Vitals Vital Signs Date Time Temp Pulse Resp B/P (MAP) Pulse Ox O2 Delivery O2 Flow Rate FiO2 12/10/16 04:11 96.7 78 16 95/51 (66) 97 12/10/16 00:05 97.8 80 16 90/52 (65) 98 12/09/16 22:03 92 Nasal Cannula 4.00 12/09/16 20:10 98.7 79 16 98/50 (66) 94 12/09/16 16:00 96.8 64 17 108/58 (75) 94 12/09/16 12:00 97.5 61 17 96 12/09/16 11:30 92/56 (68) 12/09/16 10:55 80/50 (60) 12/09/16 10:54 95 Nasal Cannula 2.00 12/09/16 08:00 96.6 65 17 101/49 (66) 92 I/O 12/09/16 12/09/16 12/09/16 12/10/16 12/10/16 12/10/16 07:00 15:00 23:00 07:00 15:00 23:00 Intake Total 320 ml 400 ml 240 ml Output Total 350 ml 0 ml Balance -30 ml 400 ml 240 ml Intake Oral 120 ml 400 ml 240 ml IV Total 200 ml Output Urine Total 350 ml 0 ml # Voids 8 2 # Bowel Movements 0 0 0 Result Diagram: 12/09/16 0542 12/09/16 0542 Imaging R hip and pelvis XR with hemiarthroplasty in acceptable position. Objective Remarks seen by Dr. Alex Corral alert and awake RLE - dressing in place, no significant edema or erythema. +EHL/FHL, DF/PF. Sensation intact. Brisk cap refill. Assessment & Plan Problem List: (1) Closed right hip fracture ICD Codes: S72.001A - Fracture of unspecified part of neck of right femur, initial encounter for closed fracture Status: Acute Qualifiers: Qualified Codes: S72.001A - Fracture of unspecified part of neck of right femur, initial encounter for closed fracture Assessment and Plan Right femoral neck fracture, s/p R hip hemiarthroplasty POD #2 -WBAT RLE. Abduction pillow. Anterolateral hip precautions -PT for mobilization -Lovenox for DVT ppx while inpatient, then xarelto upon discharge -Dressing change today, then patient can leave dressing in place until follow-up -Follow-up in clinic 2 weeks. Nicolle Ball Dec 10, 2016 05:56
[2016-12-10] MEDS: KETOROLAC TROMETHAMINE 30 MG/ML (IVP) VIAL IV PUSH SCH ×3 (06:24→21:46)
[2016-12-10] MEDS: HYDROmorphone HCL 2 MG TAB PO PRN ×2 (06:24→16:45)
[2016-12-10] MEDS: SODIUM CHLORIDE 0.9% FLUSH 10 ML FLUSH IV FLUSH SCH ×2 (08:31→19:52)
[2016-12-10] MEDS: DOCUSATE SODIUM 50 MG/SENNA 8.6 MG TAB PO SCH ×2 (08:31→19:52)
[2016-12-10] MEDS ORDERED: DOCUSATE SODIUM 50 MG/SENNA 8.6 MG TAB PO ONE (11:15)
[2016-12-10] MEDS ORDERED: SOD PHOSPHATE/SOD BIPHOSPHATE (ADULT) ENEMA 133ML RECTAL ONE (11:15)
[2016-12-10] MEDS ORDERED: MAGNESIUM HYDROXIDE SUSP 30 ML CUP PO ONE (11:15)
[2016-12-10] MEDS: LEVOTHYROXINE SODIUM 50 MCG TAB PO SCH (14:22)
--- NOTE | 2016-12-10 19:34 | HHI.PR ---
Subjective Remarks Patient seen today around noon. Says she just got out of bed today. Feels she needs another day or 2 to get her strength back before going to rehabilitation. Denies any chest pain or shortness of breath. Still no bowel movement. Objective Vital Signs Date Time Temp Pulse Resp B/P (MAP) Pulse Ox O2 Delivery O2 Flow Rate FiO2 12/10/16 17:50 16 12/10/16 16:00 97.8 75 16 109/66 (80) 97 12/10/16 15:55 16 12/10/16 12:00 97.8 72 16 92/50 (64) 96 12/10/16 11:15 Nasal Cannula 2.00 12/10/16 07:00 98.1 74 16 90/55 (67) 92 12/10/16 04:11 96.7 78 16 95/51 (66) 97 12/10/16 00:05 97.8 80 16 90/52 (65) 98 12/09/16 22:03 92 Nasal Cannula 4.00 12/09/16 20:10 98.7 79 16 98/50 (66) 94 12/09/16 20:00 68 I/O 12/09/16 12/09/16 12/09/16 12/10/16 12/10/16 12/10/16 07:00 15:00 23:00 07:00 15:00 23:00 Intake Total 320 ml 400 ml 240 ml 120 ml 720 ml Output Total 350 ml 0 ml Balance -30 ml 400 ml 240 ml 120 ml 720 ml Intake Oral 120 ml 400 ml 240 ml 120 ml 720 ml IV Total 200 ml Output Urine Total 350 ml 0 ml # Voids 8 2 3 4 # Bowel Movements 0 0 0 0 0 Result Diagram: 12/09/16 0542 12/09/16 0542 Objective Remarks GENERAL: patientsitting upin chair. Appears comfortable. Alert, oriented 3. SKIN: Warm and dry. HEAD: Normocephalic. EYES: No scleral icterus. No injection or drainage. NECK: Supple, trachea midline. No JVD. CARDIOVASCULAR: Regular rate and rhythm without murmurs, gallops, or rubs. RESPIRATORY: Breath sounds equal bilaterally. No accessory muscle use. GASTROINTESTINAL: Abdomen soft, non-tender, nondistended. MUSCULOSKELETAL: No cyanosis, or edema. BACK: Nontender without obvious deformity. No CVA tenderness. A/P Assessment and Plan ==== 12/10/16 Laxatives ordered for constipation. //Status post fall with close Right subcapital femoral neck fracture - status post op day #2 right hemiarthroplasty with orthopedic surgery; continue postoperative care, pain control, rehabilitation //Postoperative constipation. Laxatives ordered. //hypothyroidism continue home Synthroid. TSH ordered and therapeutic. //Hypotension. Systolic blood pressure below 100. Unknown baseline. TSH ordered and therapeutic. Continue to monitor. DVT prophylaxis Lovenox. Otherwise as per surgical service. Discharge Planning likely discharge to rehabilitation on Monday. As per field nurse case manager, appropriate transport will not be available until Monday. Transport could be available tomorrow, however patient will have to transfer into a van, which does not seem possible at this time. Jef Man MD Dec 10, 2016 19:34
[2016-12-11] VITALS: BP 105/47; PULSE 85; RESP 16; TEMP 99.7; O2SAT 95
[2016-12-11] MEDS: KETOROLAC TROMETHAMINE 30 MG/ML (IVP) VIAL IV PUSH SCH ×3 (03:45→20:28)
[2016-12-11] MEDS: ENOXAPARIN SODIUM 40 MG/0.4 ML SYRINGE SQ SCH (03:45)
[2016-12-11] MEDS: LEVOTHYROXINE SODIUM 50 MCG TAB PO SCH (05:25)
[2016-12-11 08:00] VITALS: BP 111/59; PULSE 90; RESP 18; TEMP 98.6; O2SAT 96
--- NOTE | 2016-12-11 08:14 | PD.ORT.PN ---
Subjective Subjective Remarks pt doing better, was able to get out of bed yesterday and had no dizziness post op R hip soreness Objective Vitals Vital Signs Date Time Temp Pulse Resp B/P (MAP) Pulse Ox O2 Delivery O2 Flow Rate FiO2 12/11/16 00:00 99.7 85 16 105/47 (66) 95 Manual Cuff/Palpation 12/10/16 20:47 96.3 77 16 90/47 (61) 95 12/10/16 19:51 82 12/10/16 17:50 16 12/10/16 16:00 97.8 75 16 109/66 (80) 97 12/10/16 15:55 16 12/10/16 12:00 97.8 72 16 92/50 (64) 96 12/10/16 11:15 Nasal Cannula 2.00 I/O 12/10/16 12/10/16 12/10/16 12/11/16 12/11/16 12/11/16 07:00 15:00 23:00 07:00 15:00 23:00 Intake Total 120 ml 720 ml 240 ml 240 ml Balance 120 ml 720 ml 240 ml 240 ml Intake Oral 120 ml 720 ml 240 ml 240 ml # Voids 3 4 3 5 # Bowel Movements 0 0 3 1 Result Diagram: 12/09/16 0542 12/09/16 0542 Imaging R hip and pelvis XR with hemiarthroplasty in acceptable position. Objective Remarks seen by Dr. Alex Corral alert and awake RLE - dressing in place, no significant edema or erythema. +EHL/FHL, DF/PF. Sensation intact. Brisk cap refill. Assessment & Plan Problem List: (1) Closed right hip fracture ICD Codes: S72.001A - Fracture of unspecified part of neck of right femur, initial encounter for closed fracture Status: Acute Qualifiers: Qualified Codes: S72.001A - Fracture of unspecified part of neck of right femur, initial encounter for closed fracture Assessment and Plan Right femoral neck fracture, s/p R hip hemiarthroplasty POD #3 -WBAT RLE. Abduction pillow. Anterolateral hip precautions -PT for mobilization -Lovenox for DVT ppx while inpatient, then xarelto upon discharge -discharge to SNF today-- going to the [facility], orthopedically stable -Follow-up in clinic 2 weeks. Nicolle Ball Dec 11, 2016 08:14
[2016-12-11] MEDS: DOCUSATE SODIUM 50 MG/SENNA 8.6 MG TAB PO SCH ×2 (08:23→20:28)
[2016-12-11] MEDS: SODIUM CHLORIDE 0.9% FLUSH 10 ML FLUSH IV FLUSH SCH ×2 (08:24→20:28)
[2016-12-11] MEDS: HYDROmorphone HCL 2 MG TAB PO PRN ×2 (09:14→19:10)
[2016-12-11 09:45] VITALS: PULSE 81
[2016-12-11] MEDS: SODIUM CHLOR 0.9% 1000 ML INJ 1,000 ML IV SCH ×2 (11:55)
[2016-12-11 16:00] VITALS: BP 103/51; PULSE 88; RESP 18; TEMP 98; O2SAT 96
--- NOTE | 2016-12-11 17:20 | HHI.PR ---
Subjective Remarks Patient seen this morning around 10:30 AM. Says she still feels weak today. Dizzy when she walks around. Positive bowel movement. Objective Vital Signs Date Time Temp Pulse Resp B/P (MAP) Pulse Ox O2 Delivery O2 Flow Rate FiO2 12/11/16 10:29 16 12/11/16 09:45 81 12/11/16 08:00 98.6 90 18 111/59 (76) 96 12/11/16 00:00 99.7 85 16 105/47 (66) 95 Manual Cuff/Palpation 12/10/16 20:47 96.3 77 16 90/47 (61) 95 12/10/16 19:51 82 I/O 12/10/16 12/10/16 12/10/16 12/11/16 12/11/16 12/11/16 07:00 15:00 23:00 07:00 15:00 23:00 Intake Total 120 ml 720 ml 240 ml 240 ml Balance 120 ml 720 ml 240 ml 240 ml Intake Oral 120 ml 720 ml 240 ml 240 ml # Voids 3 4 3 5 # Bowel Movements 0 0 3 1 Result Diagram: 12/09/16 0542 12/09/16 0542 Objective Remarks GENERAL: patient lying in bed. Appears comfortable. Alert, oriented 3. SKIN: Warm and dry. HEAD: Normocephalic. EYES: No scleral icterus. No injection or drainage. NECK: Supple, trachea midline. No JVD. CARDIOVASCULAR: Regular rate and rhythm without murmurs, gallops, or rubs. RESPIRATORY: Breath sounds equal bilaterally. No accessory muscle use. GASTROINTESTINAL: Abdomen soft, non-tender, nondistended. MUSCULOSKELETAL: No cyanosis, or edema. BACK: Nontender without obvious deformity. No CVA tenderness. A/P Assessment and Plan ==== 12/11/16 //Hypoxia. Likely secondary to pain medication, to which patient is anibal. Chest x-ray. Continue incentive spirometry. Constipation. Resolved after laxatives. Discussed with nursing. Discharge tomorrow when appropriate transportation to SNF available. //Status post fall with close Right subcapital femoral neck fracture - status post op day #2 right hemiarthroplasty with orthopedic surgery; continue postoperative care, pain control, rehabilitation //Postoperative constipation. Laxatives ordered. //hypothyroidism continue home Synthroid. TSH therapeutic. //Hypotension. Systolic blood pressure below 100. Unknown baseline. TSH ordered and therapeutic. Continue to monitor. DVT prophylaxis Lovenox. Otherwise as per surgical service. Discharge Planning likely discharge to rehabilitation on Monday. As per nurse case manager, appropriate transport will not be available until Monday. Transport could be available tomorrow, however patient will have to transfer into a van, which does not seem possible at this time. Jef Man MD Dec 11, 2016 17:20
--- NOTE | 2016-12-11 19:04 | RADRPT ---
EXAM DATE/TIME: 12/11/2016 18:03 [facility] COMPARISON: CHEST SINGLE AP, December 08, 2016, 0:16. INDICATIONS : Shortness of breath. MEDICAL HISTORY : None. SURGICAL HISTORY : Spine fixation. ENCOUNTER: Subsequent ACUITY: 3 days PAIN SCORE: 0/10 LOCATION: Bilateral chest FINDINGS: There is consolidation in the medial left lower lung causing loss of delineation of the medial 3rd of the left hemidiaphragm and with multiple air bronchograms. Some patchy or infiltrates are present i n the medial right lower lung. Mild blunting of the costophrenic angle suggesting associated small p leural effusions. The pulmonary findings are new when compared to prior examination 12/08/16. The he art is normal size. Posterior fixation hardware throughout the thoracic and upper lumbar spine. CONCLUSION: Interval development of consolidation medial left lower lung and patchy infiltrates in the medial rig ht lower lung. Julián Carl MD on December 11, 2016 at 19:01 Board Certified Radiologist. This report was verified electronically.
[2016-12-11 20:47] VITALS: BP 108/58; PULSE 77; RESP 16; TEMP 99.5; O2SAT 98
[2016-12-11 21:16] VITALS: O2SAT 96
[2016-12-12 00:21] VITALS: BP 97/50; PULSE 78; RESP 16; TEMP 99.7; O2SAT 98
[2016-12-12] MEDS: ENOXAPARIN SODIUM 40 MG/0.4 ML SYRINGE SQ SCH (03:39)
[2016-12-12] MEDS: HYDROmorphone HCL 2 MG TAB PO PRN (03:42)
[2016-12-12 04:43] VITALS: BP 106/61; PULSE 79; RESP 16; TEMP 98; O2SAT 96
[2016-12-12] MEDS: KETOROLAC TROMETHAMINE 30 MG/ML (IVP) VIAL IV PUSH SCH (05:30)
[2016-12-12] MEDS: LEVOTHYROXINE SODIUM 50 MCG TAB PO SCH (05:30)
[2016-12-12 08:00] VITALS: BP 111/59; PULSE 80; RESP 18; TEMP 98.1; O2SAT 95
[2016-12-12 08:35] VITALS: O2SAT 96
[2016-12-12] MEDS: SODIUM CHLORIDE 0.9% FLUSH 10 ML FLUSH IV FLUSH SCH (09:00)
[2016-12-12] MEDS: DOCUSATE SODIUM 50 MG/SENNA 8.6 MG TAB PO SCH (09:00)
[2016-12-12] MEDS ORDERED: XARE10TA PO (09:51)
[2016-12-12] MEDS ORDERED: DILA2TAB2 PO (09:51)
[2016-12-12 11:11] VITALS: PULSE 78
[2016-12-12 12:00] VITALS: BP 94/50; PULSE 75; RESP 18; TEMP 97.9; O2SAT 95
--- NOTE | 2016-12-12 22:57 | HHI.PR ---
Subjective Remarks Patient seen this morning around 10 AM. Says she is feeling all right. Denies any chest pain or shortness of breath. She is off oxygen today. Objective Vital Signs Date Time Temp Pulse Resp B/P (MAP) Pulse Ox O2 Delivery O2 Flow Rate FiO2 12/12/16 12:00 97.9 75 18 94/50 (65) 95 12/12/16 11:11 78 12/12/16 08:35 96 Nasal Cannula 2.00 12/12/16 08:00 98.1 80 18 111/59 (76) 95 12/12/16 04:43 98.0 79 16 106/61 (76) 96 12/12/16 00:21 99.7 78 16 97/50 (66) 98 I/O 12/11/16 12/11/16 12/11/16 12/12/16 12/12/16 12/12/16 07:00 15:00 23:00 07:00 15:00 23:00 Intake Total 240 ml 720 ml 240 ml 120 ml Balance 240 ml 720 ml 240 ml 120 ml Intake Oral 240 ml 720 ml 240 ml 120 ml # Voids 5 5 3 3 # Bowel Movements 1 0 0 0 Result Diagram: 12/09/1642 12/09/16 0542 Objective Remarks GENERAL: patient sitting up in chair. Appears comfortable. Alert, oriented 3. SKIN: Warm and dry. HEAD: Normocephalic. EYES: No scleral icterus. No injection or drainage. NECK: Supple, trachea midline. No JVD. CARDIOVASCULAR: Regular rate and rhythm without murmurs, gallops, or rubs. RESPIRATORY: Breath sounds equal bilaterally. No accessory muscle use.no wheezes , rales, rhonchi. GASTROINTESTINAL: Abdomen soft, non-tender, nondistended. MUSCULOSKELETAL: No cyanosis, or edema. BACK: Nontender without obvious deformity. No CVA tenderness. A/P Assessment and Plan ==== 12/12/16 //Hypoxia. Resolved. Likely was secondary to pain medication. Patient appears to be tolerating better at this time. /Chest x-ray with possible left lower lobe consolidation, possible pleural effusion. Very poor effort on chest x-ray, poor positioning. Patient no longer requiring oxygen. Lungs are clear on examination. Patient without chest pain or respiratory complaints. Continue with incentive spirometry. Recommend repeat chest x-ray in 2 days. //Status post fall with close Right subcapital femoral neck fracture - status post op day right hemiarthroplasty with orthopedic surgery; continue postoperative care, pain control, rehabilitation //Postoperative constipation. Laxatives ordered. //hypothyroidism continue home Synthroid. TSH therapeutic. //Hypotension. Systolic blood pressure below 100. Unknown baseline. TSH ordered and therapeutic. Continue to monitor. DVT prophylaxis Lovenox. Otherwise as per surgical service. Discharge Planning discharge to rehabilitation Jef Man MD Dec 12, 2016 22:57
--- NOTE | 2016-12-12 23:12 | HHI.DS ---
Discharge Summary Admission Date Dec 08, 2016 at 01:44 Discharge Date: Dec 12, 2016 Admitting Diagnosis Right hip fracture (1) Hip fracture, right ICD Code: S72.001A - Fracture of unspecified part of neck of right femur, initial encounter for closed fracture Procedures right-sided hemiarthroplasty Brief History - From Admission History from patient, ER physician communication, and review of medical records. Patient reported that she was at her hotel eating dinner and got up from her chair. She stated she suddenly got up and probably got up on the wrong direction and therefore somehow fell down. She does not remember getting tripped by anything. There was no object to cause this. She denies any premonitory symptoms prior to the fall such as chest pain/ palpitations/shortness of breath/focal weakness. Upon further questioning, patient also denies any recent fever/nausea/vomiting/ diarrhea/urinary burning or pain on urination. Denies any hematemesis/hematochezia/melena/hematuria. Patient travels here from [place] where she lives for vacationing with her nephew. CBC/BMP: 12/09/16 0542 12/09/16 0542 Significant Findings Laboratory Tests Test 12/10/16 17:05 Imaging Last Impressions Chest X-Ray 12/11/16 0000 Signed Impressions: Service Date/Time: Sunday, December 11, 2016 18:03 - CONCLUSION: Interval development of consolidation medial left lower lung and patchy infiltrates in the medial right lower lung. Julián Carl MD Hip and Pelvis X-Ray 12/08/16 0000 Signed Impressions: Service Date/Time: November 15:08 - CONCLUSION: Right sided hemiarthroplasty postop appearance within normal limits. Mg Gonzalez MD PE at Discharge GENERAL: This is a well-nourished, well-developed patient, in no apparent distress. CARDIOVASCULAR: Regular rate and rhythm RESPIRATORY: Clear to auscultation. Breath sounds equal bilaterally. No wheezes , rales, or rhonchi. GASTROINTESTINAL: Abdomen soft, non-tender, nondistended. Normal active bowel sounds MUSCULOSKELETAL: Extremities without clubbing, cyanosis, or edema. Right hip bandage clean dry and intact NEURO: Alert and oriented 4 with moving all upper and lower extremities. Hospital Course Patient was admitted, underwent right-sided hemiarthroplasty for right femoral neck fracture. She had some postoperative weakness, sensitivity to pain medication, however strength continues to improve. Some postoperative constipation which resolved with laxatives. She also had oxygen requirement of 2 L, likely secondary to pain medication which resolved. Chest x-ray performed on 12/11 with what appears to be poor effort, reporting possible consolidation; however this appears to be artifact of poor effort. As patient is requirement has resolved and she is breathing comfortably without any respiratory symptoms, Recommend repeat chest x-ray in 1-2 days. Continue on incentive spirometry. For problem-based summary for most recent progress note, please see below. Patient seen this morning around 10 AM. Says she is feeling all right. Denies any chest pain or shortness of breath. She is off oxygen today. ==== 12/12/16 //Hypoxia. Resolved. Likely was secondary to pain medication. Patient appears to be tolerating better at this time. /Chest x-ray with possible left lower lobe consolidation, possible pleural effusion. Very poor effort on chest x-ray, poor positioning. Patient no longer requiring oxygen. Lungs are clear on examination. Patient without chest pain or respiratory complaints. Continue with incentive spirometry. Recommend repeat chest x-ray in 2 days. //Status post fall with close Right subcapital femoral neck fracture - status post op day #2 right hemiarthroplasty with orthopedic surgery; continue postoperative care, pain control, rehabilitation //Postoperative constipation. Laxatives ordered. //hypothyroidism continue home Synthroid. TSH therapeutic. //Hypotension. Systolic blood pressure below 100. Unknown baseline. TSH ordered and therapeutic. Continue to monitor. DVT prophylaxis Lovenox. Otherwise as per surgical service. Discharge Planning likely discharge to rehabilitation on Monday. As per supportive employment case manager, appropriate transport will not be available until Monday. Transport could be available tomorrow, however patient will have to transfer into a van, which does not seem possible at this time. Pt Condition on Discharge: Good Discharge Disposition: Discharge to SNF Discharge Time: > 30 minutes Discharge Instructions DIET: Follow Instructions for: Heart Healthy Diet Activities you can perform: Weight Bearing as Rafael Follow up Referrals: [facility] @ [facility] [place] with Jewell Fernandes MD New Medications: Rivaroxaban (Xarelto) 10 Mg Tab 10 MG PO DAILY for Blood Clot Prevention, #30 TAB 0 Refills discontinue this medication after one month completed. Hydromorphone (Dilaudid) 2 Mg Tab 1 MG PO Q6H PRN for PAIN SCALE 6 TO 10 OR COUGHING, #10 TAB Continued Medications: Levothyroxine (Levothyroxine) 50 Mcg Tab 50 MCG PO DAILY for Thyroid, #30 TAB 0 Refills Discontinued Medications: Sulfamethoxazole-Trimethoprim (Sulfamethoxazole-Trimethoprim) 800-160 Mg Tab 1 TAB PO BID for Infection, #14 TAB 0 Refills Jef Man MD Dec 12, 2016 23:12
== END 2016-12-12 14:55 | DRG 470 ==
LOC: NEPC 23:06 → NEDA 12-08 01:44 → NEPFCDU 12-08 02:42 → N06B 12-08 13:23 → N06A 12-08 16:19
PROVIDERS: ADMIT Internal Medicine; ATTEND Internal Medicine
PROC: 0SRR0J9 Replacement of Right Hip Joint, Femoral Surface with Synthetic Substitute, Cemented, Open Approach (ICD-10-PCS; principal; 2016-12-08 12:25)
DX: S72.011A Unspecified intracapsular fracture of right femur, initial encounter for closed fracture (principal); I95.9 Hypotension, unspecified; E03.9 Hypothyroidism, unspecified; W08.XXXA Fall from other furniture, initial encounter; Y93.89 Activity, other specified; Y92.9 Unspecified place or not applicable; R42 Dizziness and giddiness; K59.00 Constipation, unspecified; R09.02 Hypoxemia; Z86.14 Personal history of Methicillin resistant Staphylococcus aureus infection
CPT/HCPCS: 51702; 71010; 73502; 80048; 80053; 81001; 83735; 84443; 84484; 85025; 85610; 85730; 93005; 96361; 96374; 96375; C1776; J0131; J0690; J1100; J1170; J1580; J1650; J1885; J2250; J2405; J2710; J3010; J3260; J3370; J7030; J7120; J8501